=== PATIENT | female | born 1975 | race Hispanic/Latino ===

== ENCOUNTER 2017-06-29 20:56 | Inpatient (IN) | payer OTHER ==
[~2017-06-29] VITALS: Ht 172.7 cm; Wt 133.1 kg
[~2017-06-29 20:56] MED LIST: ADVIL200 MG PO; ENOXAPARIN100 MG/1 M SC; MORPHINE SULFAT15 M1 PO; NORCO 10-325 T1 EACH PO; SUTENT12.5 MG PO; ULTRAM50 MG PO
--- OUTSIDE RECORDS SUMMARY | 2017-06-29 20:58 | XMS REPORT ---
Author [facility] Address Unknown Phone Unavailable Care Team Providers Care Insurance Commissioner Name Role Phone Unavailable Unavailable Problems This patient has no known problems. Allergies, Adverse Reactions, Alerts This patient has no known allergies or adverse reactions. Medications This patient has no known medications. Encounters Start Date/Time End Date/Time Encounter Type Admission Type Attending [facility] Facility Care Department Encounter ID 2017-04-04 16:00:30 Inpatient [facility] [id number] 2017-04-03 11:31:25 Inpatient [facility] [id number] 2017-04-01 15:04:32 Inpatient [facility] [id number] 2017-04-01 12:28:57 Inpatient [facility] [id number] 2017-03-31 00:00:00 Inpatient [facility] [id number] 2017-03-31 00:00:00 Inpatient [facility] [id number] 2017-07-27 00:00:00 2017-07-27 00:00:00 Outpatient [facility] [id number] 2017-07-14 00:00:00 2017-07-14 00:00:00 Outpatient [facility] [id number] 2017-07-14 00:00:00 2017-07-14 00:00:00 Outpatient [facility] [id number] 2017-06-28 04:21:34 2017-06-28 04:21:34 Emergency [facility] [id number] 2017-06-22 08:43:48 2017-06-22 08:43:48 Outpatient [facility] [id number] 2017-06-20 00:00:00 2017-06-20 00:00:00 Outpatient [facility] [id number] 2017-06-16 14:04:39 2017-06-16 14:04:39 Outpatient [facility] [id number] 2017-06-15 10:04:26 2017-06-15 10:04:26 Outpatient [facility] [id number] 2017-06-15 00:00:00 2017-06-15 00:00:00 Outpatient [facility] [id number] 2017-05-26 00:00:00 2017-05-26 00:00:00 Outpatient [facility] [id number] 2017-05-26 00:00:00 2017-05-26 00:00:00 Outpatient [facility] [id number] 2017-05-23 09:15:21 2017-05-23 09:15:21 Outpatient [facility] [id number] 2017-05-19 13:34:13 2017-05-19 13:34:13 Outpatient [facility] [id number] 2017-05-19 12:27:34 2017-05-19 12:27:34 Outpatient [facility] [id number] 2017-05-18 10:17:22 2017-05-18 10:17:22 Outpatient [facility] [id number] 2017-05-18 09:36:12 2017-05-18 09:36:12 Outpatient [facility] [id number] 2017-05-04 00:00:00 2017-05-04 00:00:00 Outpatient [facility] [id number] 2017-05-02 00:00:00 2017-05-02 00:00:00 Outpatient [facility] [id number] 2017-04-28 15:09:55 2017-04-28 15:09:55 Outpatient [facility] [id number] 2017-04-27 09:42:13 2017-04-27 09:42:13 Outpatient [facility] [id number] 2017-04-27 09:03:53 2017-04-27 09:03:53 Outpatient [facility] [id number] 2017-04-26 00:00:00 2017-04-26 00:00:00 Outpatient [facility] [id number] 2017-04-25 10:31:10 2017-04-25 10:31:10 Outpatient [facility] [id number] 2017-04-25 00:00:00 2017-04-25 00:00:00 Outpatient [facility] [id number] 2017-04-20 10:52:49 2017-04-20 10:52:49 Outpatient [facility] [id number] 2017-04-19 00:00:00 2017-04-19 00:00:00 Outpatient [facility] [id number] 2017-04-15 00:00:00 2017-04-15 00:00:00 Outpatient [facility] [id number] 2017-04-14 00:00:00 2017-04-14 00:00:00 Outpatient [facility] [id number] 2017-04-14 00:00:00 2017-04-14 00:00:00 Outpatient [facility] [id number] 2017-04-07 00:00:00 2017-04-07 00:00:00 Outpatient [facility] [id number] 2017-04-07 00:00:00 2017-04-07 00:00:00 Outpatient [facility] [id number] 2017-04-07 00:00:00 2017-04-07 00:00:00 Outpatient [facility] [id number] 2017-04-05 00:00:00 2017-04-05 00:00:00 Outpatient [facility] [id number] 2017-03-31 12:56:12 2017-03-31 12:56:12 Emergency [facility] [id number] 2017-03-31 11:10:17 2017-03-31 11:10:17 Inpatient [facility] [id number] 2017-03-31 08:07:00 2017-03-31 08:07:00 Outpatient [facility] [id number] 2017-03-31 05:21:26 2017-03-31 00:00:00 Inpatient [facility] [id number] 2017-03-31 00:00:00 2017-03-31 00:00:00 Outpatient [facility] [id number] 2017-03-30 00:00:00 2017-03-30 00:00:00 Outpatient [facility] [id number] 2017-03-30 00:00:00 2017-03-30 00:00:00 Emergency [facility] [id number] 2017-03-17 00:00:00 2017-03-17 00:00:00 Outpatient [facility] [id number] 2017-03-14 14:39:17 2017-03-14 14:39:17 Outpatient [facility] [id number] 2017-03-10 13:07:38 2017-03-10 13:07:38 Outpatient [facility] [id number] 2017-03-10 12:35:43 2017-03-10 12:35:43 Outpatient [facility] [id number] 2017-02-24 13:15:48 2017-02-24 13:15:48 Outpatient [facility] [id number] 2017-02-24 12:29:23 2017-02-24 12:29:23 Outpatient [facility] [id number] 2017-02-10 00:00:00 2017-02-10 00:00:00 Outpatient [facility] [id number] 2017-02-01 10:59:52 2017-02-01 10:59:52 Outpatient [facility] [id number] 2017-01-27 13:47:54 2017-01-27 13:47:54 Outpatient [facility] [id number] 2017-01-26 00:00:00 2017-01-26 00:00:00 Outpatient [facility] [id number] 2017-01-20 00:00:00 2017-01-20 00:00:00 Outpatient [facility] [id number] 2017-01-14 12:31:22 2017-01-14 12:31:22 Emergency [facility] [id number] 2017-01-14 11:37:41 2017-01-14 11:37:41 Emergency [facility] [id number] 2017-01-14 08:10:45 2017-01-14 08:10:45 Emergency [facility] [id number] 2017-01-14 05:34:04 2017-01-14 05:34:04 Inpatient [facility] [id number] 2017-01-13 15:34:59 2017-01-13 15:34:59 Outpatient [facility] [id number] 2017-01-13 14:36:27 2017-01-13 14:36:27 Outpatient [facility] [id number] 2017-01-10 19:56:00 2017-01-10 19:56:00 Emergency [facility] [id number] 2016-12-30 00:00:00 2016-12-30 00:00:00 Outpatient [facility] [id number] 2016-12-24 00:00:00 2016-12-24 00:00:00 Outpatient [facility] [id number] 2016-12-23 00:00:00 2016-12-23 00:00:00 Outpatient [facility] [id number] 2016-12-22 00:00:00 2016-12-22 00:00:00 Outpatient [facility] [id number] 2016-12-22 00:00:00 2016-12-22 00:00:00 Outpatient [facility] [id number] 2016-12-16 14:48:53 2016-12-16 14:48:53 Outpatient [facility] [id number] 2016-12-16 00:00:00 2016-12-16 00:00:00 Outpatient [facility] [id number] 2016-12-16 00:00:00 2016-12-16 00:00:00 Outpatient [facility] [id number] 2016-12-13 10:47:22 2016-12-13 10:47:22 Outpatient [facility] [id number] 2016-12-07 13:47:42 2016-12-07 13:47:42 Outpatient [facility] [id number] 2016-12-07 11:39:40 2016-12-07 11:39:40 Outpatient [facility] [id number] 2016-12-06 15:11:27 2016-12-06 15:11:27 Outpatient [facility] [id number] 2016-12-02 00:00:00 2016-12-02 00:00:00 Outpatient [facility] [id number] 2016-12-02 00:00:00 2016-12-02 00:00:00 Outpatient [facility] [id number] 2016-11-22 00:00:00 2016-11-22 00:00:00 Outpatient [facility] [id number] 2016-11-15 00:00:00 2016-11-15 00:00:00 Outpatient [facility] [id number] 2016-11-04 14:51:57 2016-11-04 14:51:57 Outpatient [facility] [id number] 2016-11-04 14:15:19 2016-11-04 14:15:19 Outpatient [facility] [id number] 2016-10-18 08:33:52 2016-10-18 08:33:52 Outpatient [facility] [id number] 2016-10-07 13:32:31 2016-10-07 13:32:31 Outpatient [facility] [id number] 2016-10-07 12:58:11 2016-10-07 12:58:11 Outpatient [facility] [id number] 2016-09-23 00:00:00 2016-09-23 00:00:00 Outpatient [facility] [id number] 2016-09-23 00:00:00 2016-09-23 00:00:00 Outpatient [facility] [id number] 2016-09-21 00:00:00 2016-09-21 00:00:00 Outpatient [facility] [id number] 2016-09-16 00:00:00 2016-09-16 00:00:00 Outpatient [facility] [id number] 2016-09-09 14:28:50 2016-09-09 14:28:50 Outpatient [facility] [id number] 2016-09-09 08:51:19 2016-09-09 08:51:19 Outpatient [facility] [id number] 2016-09-09 00:00:00 2016-09-09 00:00:00 Outpatient [facility] [id number] 2016-09-06 13:51:46 2016-09-06 13:51:46 Outpatient [facility] [id number] 2016-09-03 20:19:04 2016-09-03 20:19:04 Outpatient [facility] [id number] 2016-09-03 15:09:22 2016-09-03 15:09:22 Emergency [facility] [id number] 2016-09-03 13:10:59 2016-09-03 13:10:59 Outpatient [facility] [id number] 2016-09-02 14:47:56 2016-09-02 14:47:56 Outpatient [facility] [id number] 2016-09-02 00:00:00 2016-09-02 00:00:00 Outpatient [facility] [id number] 2016-08-26 11:15:50 2016-08-26 11:15:50 Outpatient [facility] [id number] 2016-08-24 12:42:43 2016-08-24 12:42:43 Outpatient [facility] [id number] 2016-08-24 11:30:37 2016-08-24 11:30:37 Outpatient [facility] [id number] 2016-08-24 11:00:07 2016-08-24 11:00:07 Outpatient [facility] [id number] 2016-08-17 13:04:30 2016-08-17 13:04:30 Outpatient [facility] [id number] 2016-08-09 07:20:16 2016-08-09 07:20:16 Outpatient [facility] [id number]
[2017-06-29] MEDS ORDERED: IBUPROFEN 400 MG TAB PO STA (21:09)
[2017-06-29] MEDS ORDERED: VANCOMYCIN 1GM/NS 250 ML 250 ML IV STA (21:10)
[2017-06-29] MEDS ORDERED: PIPER-TAZ 3.375 GM 50 ML IV STA (21:10)
[2017-06-29] MEDS ORDERED: SODIUM CHLORIDE 0.9% 1000ML 1,000 ML IV ONE ×2 (21:15→22:15)
[2017-06-29 21:49] LABS: BASOPHILS % 0.2 % (0.0-1.0); EOSINOPHILS % 0.4 % (0.0-6.0); HEMATOCRIT 28.9 % (34.2-44.1); LYMPHOCYTES # (AUTO) 1.2 (1.0-3.2); LYMPHOCYTES % 10.8 % (18.0-39.1); MEAN CORPUSCULAR HEMOGLOBIN 21.5 pg (28-32); MEAN CORPUSCULAR HGB CONC 27.7 g/dL (31-35); MEAN CORPUSCULAR VOLUME 77.7 fL (81-99); MONOCYTES # (AUTO) 0.4 (0.2-0.8); MONOCYTES % 3.7 % (4.4-11.3); NEUTROPHILS # (AUTO) 9.5 (2.1-6.9); NEUTROPHILS % 84.5 % (38.7-80.0); PLATELET COUNT 370 x10e3/uL (140-360); RED BLOOD COUNT 3.72 x10e6/uL (3.6-5.1); RED CELL DISTRIBUTION WIDTH 23.1 % (11.7-14.4)
[2017-06-29 21:52] LABS: BILIRUBIN,URINE NEGATIVE (NEGATIVE); CLARITY,URINE SL CLOUDY (CLEAR); COLOR,URINE YELLOW (YELLOW); KETONES,URINE NEGATIVE (NEGATIVE); LEUKOCYTE ESTERASE ,URINE NEGATIVE (NEGATIVE); NITRITE,URINE NEGATIVE (NEGATIVE); PROTEIN,URINE DIPSTICK TRACE (NEGATIVE); URINE UROBILINOGEN 1 mg/dL (0.2 - 1)
[2017-06-29 22:03] LABS: BACTERIA,URINE MODERATE /HPF; EPITHELIAL CELLS,URINE MANY /LPF
[2017-06-29 22:04] LABS: ALANINE AMINOTRANSFERASE 16 IU/L (0-55); ALBUMIN 2.9 g/dL (3.5-5.0); ALBUMIN/GLOBULIN RATIO 0.6 (0.8-2.0); ALKALINE PHOSPHATASE 92 IU/L (40-150); ANION GAP 15.8 mmol/L (8-16); BLOOD UREA NITROGEN 14 mg/dL (7-26); BUN/CREATININE RATIO 18 (6-25); CALCIUM 9.1 mg/dL (8.4-10.2); CARBON DIOXIDE 24 mmol/L (22-29); CHLORIDE 100 mmol/L (98-107); CREATININE, SERUM 0.76 mg/dL (0.57-1.11); EST GLOMERULAR FILTRATION RATE > 60 ML/MIN (60-); GLUCOSE 153 mg/dL (74-118); POTASSIUM 3.8 mmol/L (3.5-5.1); SODIUM 136 mmol/L (136-145)
[2017-06-29] MEDS ORDERED: SERTRALINE HCL100 MG PO (22:47)
[2017-06-29] MEDS ORDERED: SUTENT12.5 MG PO (22:47)
[2017-06-29] MEDS ORDERED: ACETAMINOPHEN 1000 MG/100 ML IV STA (22:51)
--- NOTE | 2017-06-29 22:53 | Diagnostic Imaging Report ---
EXAMINATION: CHEST SINGLE (NOT PORTABLE) INDICATION: Septic. COMPARISON: None FINDINGS: TUBES and LINES: Right-sided chest port with tip overlying the atriocaval junction LUNGS: Lungs are not well inflated. Lungs are clear. There is no evidence of pneumonia or pulmonary edema. PLEURA: No pleural effusion or pneumothorax. HEART AND MEDIASTINUM: The cardiomediastinal silhouette is unremarkable. BONES AND SOFT TISSUES: No acute osseous lesion. Soft tissues are unremarkable. UPPER ABDOMEN: No free air under the diaphragm. IMPRESSION: No acute thoracic abnormality. Signed by: Dr. Shay Lopez M.D. on 06/29/2017 10:49 PM
--- NOTE | 2017-06-29 22:54 | Diagnostic Imaging Report ---
FEMUR 2 VIEWS MINIMUM LEFT HISTORY: Infection COMPARISON: None FINDINGS: Bones: No displaced fracture. Osseous alignment is within normal limits. Joints: The joint spaces are well-maintained. Soft tissues: Large soft tissue defect noted at the level of the lateral posterior left knee IMPRESSION: 1. No acute osseous abnormality. 2. Large soft tissue defect as described above Signed by: Dr. Shay Lopez M.D. on 06/29/2017 10:51 PM
--- NOTE | 2017-06-29 22:54 | Diagnostic Imaging Report ---
LOWER LEG LEFT HISTORY: Infection COMPARISON: None FINDINGS: Bones: No displaced fracture. Osseous alignment is within normal limits. Joints: The joint spaces are well-maintained. Soft tissues: Large soft tissue defect noted at the level of the lateral left knee IMPRESSION: 1. No acute osseous abnormality. 2. Large soft tissue defect as described above Signed by: Dr. Shay Lopez M.D. on 06/29/2017 10:50 PM
--- NOTE | 2017-06-29 22:55 | Diagnostic Imaging Report ---
PELVIS AP 1-2 VIEWS HISTORY: Pain COMPARISON: None FINDINGS: Bones: No displaced fracture. Osseous alignment is within normal limits. Joints: The joint spaces are well-maintained. Soft tissues: The soft tissues appear unremarkable. IMPRESSION: No acute radiographic abnormality. Signed by: Dr. Shay Lopez M.D. on 06/29/2017 10:51 PM
[2017-06-29 23:33] LABS: INR 1.13; PROTHROMBIN TIME 13.6 seconds (11.9-14.5)
[2017-06-29 23:34] LABS: PARTIAL THROMBOPLASTIN TIME 34.8 seconds (23.8-35.5)
[2017-06-30] VITALS (59 sets, daily range): BP systolic 103–156; BP diastolic 61–97
[2017-06-30] MEDS ORDERED: ACETAMINOPHEN 1000 MG/100 ML IV PRN (01:15)
[2017-06-30] MEDS ORDERED: MORPHINE SULFATE 2 MG/ML SYR IV PRN (01:15)
[2017-06-30] MEDS ORDERED: ONDANSETRON HCL INJ 2 MG/ML VIAL IV PRN (01:15)
[2017-06-30] MEDS: SODIUM CHLORIDE 0.9% 1000ML 1,000 ML IV SCH ×3 (01:42→21:15)
[2017-06-30] MEDS: PIPER-TAZ 3.375 GM 50 ML IV SCH ×4 (04:19→21:00)
[2017-06-30 04:51] LABS: CREATINE KINASE 57 IU/L (29-168)
[2017-06-30 06:03] LABS: BASOPHILS % 0.3 % (0.0-1.0); EOSINOPHILS % 0.3 % (0.0-6.0); HEMATOCRIT 25.7 % (34.2-44.1); LYMPHOCYTES # (AUTO) 0.6 (1.0-3.2); LYMPHOCYTES % 7.3 % (18.0-39.1); MEAN CORPUSCULAR HEMOGLOBIN 21.8 pg (28-32); MEAN CORPUSCULAR HGB CONC 27.6 g/dL (31-35); MEAN CORPUSCULAR VOLUME 78.8 fL (81-99); MONOCYTES # (AUTO) 0.3 (0.2-0.8); MONOCYTES % 3.5 % (4.4-11.3); NEUTROPHILS # (AUTO) 6.9 (2.1-6.9); NEUTROPHILS % 88.2 % (38.7-80.0); PLATELET COUNT 296 x10e3/uL (140-360); RED BLOOD COUNT 3.26 x10e6/uL (3.6-5.1); RED CELL DISTRIBUTION WIDTH 22.7 % (11.7-14.4)
[2017-06-30 06:09] LABS: HEMOGLOBIN 7.1 g/dL (12.0-16.0)
[2017-06-30 06:38] LABS: ALANINE AMINOTRANSFERASE 15 IU/L (0-55); ALBUMIN 2.4 g/dL (3.5-5.0); ALBUMIN/GLOBULIN RATIO 0.6 (0.8-2.0); ALKALINE PHOSPHATASE 76 IU/L (40-150); ANION GAP 10.5 mmol/L (8-16); BLOOD UREA NITROGEN 12 mg/dL (7-26); BUN/CREATININE RATIO 17 (6-25); CALCIUM 8.4 mg/dL (8.4-10.2); CARBON DIOXIDE 26 mmol/L (22-29); CHLORIDE 105 mmol/L (98-107); EST GLOMERULAR FILTRATION RATE > 60 ML/MIN (60-); GLUCOSE 119 mg/dL (74-118); POTASSIUM 3.5 mmol/L (3.5-5.1); SODIUM 138 mmol/L (136-145)
[2017-06-30 07:11] LABS: CREATINE KINASE MB 2.9 ng/mL (0-5.0)
[2017-06-30] MEDS ORDERED: SODIUM CHLORIDE 0.9% 250ML 250 ML IV ONE (08:00)
[2017-06-30] MEDS ORDERED: LIDOCAINE HCL 2% JELLY 5 ML TUBE TOP ONE (09:00)
[2017-06-30 09:50] LABS: ANISOCYTOSIS MODE; PLATELET ESTIMATE ADEQUATE; PLATELET MORPHOLOGY COMMENT NORMAL; POIKILOCYTOSIS SLIGHT
[2017-06-30 09:51] LABS: HYPOCHROMASIA MODE; RBC MORPHOLOGY COMMENT ABNORMAL
[2017-06-30] MEDS: VANCOMYCIN 1GM/NS 250 ML 250 ML IV SCH ×2 (11:07→23:20)
--- NOTE | 2017-06-30 12:56 | Diagnostic Imaging Report ---
PROCEDURE: A single AP view of the chest. COMPARISON: Chest radiograph 06/29/2017 at 2239 INDICATIONS: PICC LINE PLACEMENT FINDINGS: See impression. Stable enlargement of the cardiac silhouette. Lungs, pleura, cardiomediastinal silhouette, bones, and soft tissues are unchanged. IMPRESSION: 1. Left upper extremity PICC tip overlies the cavoatrial junction. 2. Stable right sided chest port with tip overlying the cavoatrial junction. 3. No acute cardiopulmonary disease. Dictated by: Norris Gatica M.D. on 06/30/2017 at 12:56 Electronically approved by: Norris Gatica M.D. on 06/30/2017 at 12:56
[2017-06-30 18:18] LABS: CREATINE KINASE MB 2.1 ng/mL (0-5.0)
[2017-06-30] MEDS: SERTRALINE HCL 100 MG TAB PO SCH (21:00)
[2017-07-01] VITALS (33 sets, daily range): BP systolic 109–142; BP diastolic 67–111
[2017-07-01] MEDS: PIPER-TAZ 3.375 GM 50 ML IV SCH ×3 (03:45→20:51)
--- NOTE | 2017-07-01 05:01 | Consultation ---
DATE OF CONSULTATION: July 01, 2017 REASON FOR CONSULTATION: Surgical wound infection on the left leg. HISTORY OF PRESENT ILLNESS: This patient who is a 41-year-old female. 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 She was [place], underwent surgical resection apparently. Since then, she had open wound and she was told she was cured. She is followed here at [facility]. Now, she has a new lesion in her thigh and she has an open wound on her leg, and she is on oral chemotherapy. Apparently, she was just in the emergency room at [facility] few days ago for her open wound and she was just discharged home with some oral antibiotics. She went home and then she started to have fever and chills according to her, so the patient came to our emergency room where she was admitted. When I saw the patient, she was in the hospital in the emergency room, admitted to ICU. She looked very comfortable, had no complaints. PAST MEDICAL HISTORY: Left leg sarcoma status post resection in 2007 and 2012, chronic leg edema, history of UTI before. PAST SURGICAL HISTORY: Cholecystectomy, left leg sarcoma surgery in 2007 and 2012 with open wound now. ALLERGIES: NKA. FAMILY HISTORY: There is no smoking, drug abuse, alcohol abuse. FAMILY HISTORY: Hypertension. REVIEW OF SYSTEMS: When I saw her, she looked very comfortable. There are no new complaints. HEENT: Negative. PULMONARY: Negative. CARDIAC: Negative. : Negative. LABORATORY DATA: Reviewed. Her blood cultures negative for 24 hours. Her urine culture is still pending. Her white count on admission was 11.24, today is 7.76; hemoglobin is 7.1; platelet of 296,000. Sodium 138, potassium 3.5, creatinine 0.7. MEDICATION LIST: Reviewed. PHYSICAL EXAMINATION: GENERAL: She is alert, oriented, does not seem to be in acute distress. VITAL SIGNS: Stable. T-max had been 103.6 on admission, coming down to 100.2. HEENT: Normocephalic. Does not appear icteric. NECK: Supple. CHEST: Clear. HEART: S1 and S2. No S3, S4, or murmur. ABDOMEN: Soft. Bowel sounds present. No tenderness. EXTREMITIES: There is edema, there is erythema, there is an open wound on the leg, there is induration. There is necrotic tissue noted on the muscles, on the fiber sheath. No pus or drainage at present time. IMPRESSION: Fever in a patient who has sarcoma with recurrence now, with open wound on her leg. Agree with vancomycin and Zosyn. Continue therapy. Await blood cultures. Continue with local wound care. I will follow with you. Discussed with Dr. Jamal Vázquez. Discussed with the family. Thank you. Job#: [id number]
[2017-07-01] MEDS: SODIUM CHLORIDE 0.9% 1000ML 1,000 ML IV SCH ×3 (05:26→20:51)
[2017-07-01 06:16] LABS: CHOL/HDL RATIO 3.9 (3.0-3.6)
[2017-07-01 07:43] LABS: BASOPHILS % 0.2 % (0.0-1.0); EOSINOPHILS # (AUTO) 0.1 (0.0-0.4); EOSINOPHILS % 2.2 % (0.0-6.0); HEMATOCRIT 28.6 % (34.2-44.1); HEMOGLOBIN 8.3 g/dL (12.0-16.0); LYMPHOCYTES # (AUTO) 1.3 (1.0-3.2); LYMPHOCYTES % 21.3 % (18.0-39.1); MEAN CORPUSCULAR HEMOGLOBIN 23.2 pg (28-32); MEAN CORPUSCULAR VOLUME 79.9 fL (81-99); MONOCYTES # (AUTO) 0.3 (0.2-0.8); MONOCYTES % 4.9 % (4.4-11.3); NEUTROPHILS # (AUTO) 4.2 (2.1-6.9); NEUTROPHILS % 71.1 % (38.7-80.0); PLATELET COUNT 282 x10e3/uL (140-360); RED BLOOD COUNT 3.58 x10e6/uL (3.6-5.1); RED CELL DISTRIBUTION WIDTH 21.2 % (11.7-14.4)
[2017-07-01 07:54] LABS: ANION GAP 9.4 mmol/L (8-16); BLOOD UREA NITROGEN 10 mg/dL (7-26); BUN/CREATININE RATIO 17 (6-25); CALCIUM 8.2 mg/dL (8.4-10.2); CARBON DIOXIDE 26 mmol/L (22-29); CHLORIDE 105 mmol/L (98-107); EST GLOMERULAR FILTRATION RATE > 60 ML/MIN (60-); GLUCOSE 105 mg/dL (74-118); POTASSIUM 3.4 mmol/L (3.5-5.1); SODIUM 137 mmol/L (136-145)
[2017-07-01] MEDS ORDERED: SUTENT PO SCH (09:00)
[2017-07-01] MEDS: VANCOMYCIN 1GM/NS 250 ML 250 ML IV SCH ×2 (10:00→22:00)
[2017-07-01] MEDS: SERTRALINE HCL 100 MG TAB PO SCH (20:51)
[2017-07-01] MEDS ORDERED: VANCOMYCIN 1GM/NS 250 ML 250 ML ONE (21:46)
[2017-07-02] VITALS (8 sets, daily range): BP systolic 139–158; BP diastolic 74–99
[2017-07-02] MEDS: SODIUM CHLORIDE 0.9% 1000ML 1,000 ML IV SCH ×2 (03:17→13:17)
[2017-07-02] MEDS: PIPER-TAZ 3.375 GM 50 ML IV SCH ×4 (03:24→23:00)
[2017-07-02] MEDS: SUTENT PO SCH (08:49)
[2017-07-02] MEDS ORDERED: VANCOMYCIN 1GM/NS 250 ML 250 ML IV SCH (10:00)
[2017-07-02] MEDS: VANCOMYCIN HCL 1.5 GM in SODIUM CHLORIDE 0.9% 250ML 300 ML IV SCH ×2 (10:34→20:30)
[2017-07-02] MEDS ORDERED: LACTATED RINGER'S 1,000 ML ONE (14:38)
[2017-07-02] MEDS: SERTRALINE HCL 100 MG TAB PO SCH (20:30)
[2017-07-02] MEDS ORDERED: VANCOMYCIN HCL 1.5 GM in SODIUM CHLORIDE 0.9% 250ML 300 ML IV SCH (21:00)
[2017-07-03] VITALS (8 sets, daily range): BP systolic 114–154; BP diastolic 75–92
[2017-07-03] MEDS: PIPER-TAZ 3.375 GM 50 ML IV SCH ×4 (03:41→21:15)
[2017-07-03 07:47] LABS: BASOPHILS % 0.5 % (0.0-1.0); EOSINOPHILS # (AUTO) 0.2 (0.0-0.4); EOSINOPHILS % 5.4 % (0.0-6.0); HEMATOCRIT 30.9 % (34.2-44.1); HEMOGLOBIN 8.8 g/dL (12.0-16.0); LYMPHOCYTES # (AUTO) 1.5 (1.0-3.2); LYMPHOCYTES % 35.9 % (18.0-39.1); MEAN CORPUSCULAR HEMOGLOBIN 22.7 pg (28-32); MEAN CORPUSCULAR HGB CONC 28.5 g/dL (31-35); MEAN CORPUSCULAR VOLUME 79.6 fL (81-99); MONOCYTES # (AUTO) 0.2 (0.2-0.8); MONOCYTES % 4.5 % (4.4-11.3); NEUTROPHILS # (AUTO) 2.2 (2.1-6.9); NEUTROPHILS % 53.5 % (38.7-80.0); PLATELET COUNT 295 x10e3/uL (140-360); RED BLOOD COUNT 3.88 x10e6/uL (3.6-5.1); RED CELL DISTRIBUTION WIDTH 21.4 % (11.7-14.4)
[2017-07-03 08:36] LABS: ALANINE AMINOTRANSFERASE 18 IU/L (0-55); ALBUMIN 2.2 g/dL (3.5-5.0); ALBUMIN/GLOBULIN RATIO 0.6 (0.8-2.0); ALKALINE PHOSPHATASE 70 IU/L (40-150); ANION GAP 9.4 mmol/L (8-16); BLOOD UREA NITROGEN 8 mg/dL (7-26); BUN/CREATININE RATIO 14 (6-25); CALCIUM 8.5 mg/dL (8.4-10.2); CARBON DIOXIDE 30 mmol/L (22-29); CHLORIDE 101 mmol/L (98-107); CREATININE, SERUM 0.59 mg/dL (0.57-1.11); EST GLOMERULAR FILTRATION RATE > 60 ML/MIN (60-); GLUCOSE 98 mg/dL (74-118); POTASSIUM 3.4 mmol/L (3.5-5.1); SODIUM 137 mmol/L (136-145)
[2017-07-03] MEDS: SUTENT PO SCH (09:00)
[2017-07-03] MEDS: VANCOMYCIN HCL 1.5 GM in SODIUM CHLORIDE 0.9% 250ML 300 ML IV SCH ×2 (09:50→21:55)
[2017-07-03] MEDS ORDERED: POTASSIUM CHLORIDE 10 MEQ TABCR PO ONE (13:15)
[2017-07-03] MEDS ORDERED: POTASSIUM CHLORIDE 20 MEQ TAB CR PO ONE (13:30)
[2017-07-03] MEDS: SERTRALINE HCL 100 MG TAB PO SCH (21:15)
[2017-07-04] VITALS (8 sets, daily range): BP systolic 122–152; BP diastolic 71–83
[2017-07-04] MEDS: PIPER-TAZ 3.375 GM 50 ML IV SCH ×4 (03:40→21:35)
[2017-07-04] MEDS ORDERED: ALTEPLASE RECOMBINANT 2 MG/2 ML VIAL IV ONE ×3 (05:00)
[2017-07-04 06:31] LABS: BASOPHILS % 0.4 % (0.0-1.0); EOSINOPHILS # (AUTO) 0.3 (0.0-0.4); EOSINOPHILS % 5.5 % (0.0-6.0); HEMOGLOBIN 8.9 g/dL (12.0-16.0); LYMPHOCYTES # (AUTO) 1.5 (1.0-3.2); LYMPHOCYTES % 32.5 % (18.0-39.1); MEAN CORPUSCULAR HEMOGLOBIN 22.8 pg (28-32); MEAN CORPUSCULAR HGB CONC 28.7 g/dL (31-35); MEAN CORPUSCULAR VOLUME 79.3 fL (81-99); MONOCYTES # (AUTO) 0.3 (0.2-0.8); MONOCYTES % 5.9 % (4.4-11.3); NEUTROPHILS # (AUTO) 2.5 (2.1-6.9); NEUTROPHILS % 55.3 % (38.7-80.0); PLATELET COUNT 274 x10e3/uL (140-360); RED BLOOD COUNT 3.91 x10e6/uL (3.6-5.1); RED CELL DISTRIBUTION WIDTH 21.4 % (11.7-14.4)
[2017-07-04 06:50] LABS: ANION GAP 8.6 mmol/L (8-16); BLOOD UREA NITROGEN 7 mg/dL (7-26); BUN/CREATININE RATIO 12 (6-25); CALCIUM 8.5 mg/dL (8.4-10.2); CARBON DIOXIDE 30 mmol/L (22-29); CHLORIDE 102 mmol/L (98-107); CREATININE, SERUM 0.58 mg/dL (0.57-1.11); EST GLOMERULAR FILTRATION RATE > 60 ML/MIN (60-); GLUCOSE 99 mg/dL (74-118); POTASSIUM 3.6 mmol/L (3.5-5.1); SODIUM 137 mmol/L (136-145)
[2017-07-04] MEDS: SUTENT PO SCH (08:09)
[2017-07-04] MEDS: VANCOMYCIN HCL 1.5 GM in SODIUM CHLORIDE 0.9% 250ML 300 ML IV SCH ×2 (08:09→21:50)
[2017-07-04 08:40] LABS: ANISOCYTOSIS SLIGHT; ELLIPTOCYTE, RBC SLIGHT; HYPOCHROMASIA MODERATE; PLATELET ESTIMATE ADEQUATE; PLATELET MORPHOLOGY COMMENT NORMAL; RBC MORPHOLOGY COMMENT NORMAL
[2017-07-04] MEDS: MORPHINE SULFATE 2 MG/ML SYR IV PRN ×2 (14:00→18:05)
[2017-07-04] MEDS: ONDANSETRON HCL INJ 2 MG/ML VIAL IV PRN ×2 (14:00→18:05)
[2017-07-04] MEDS: SERTRALINE HCL 100 MG TAB PO SCH (21:40)
[2017-07-05] VITALS (7 sets, daily range): BP systolic 125–158; BP diastolic 60–89
[2017-07-05] MEDS: PIPER-TAZ 3.375 GM 50 ML IV SCH ×4 (03:02→20:30)
[2017-07-05] MEDS: SUTENT PO SCH (09:00)
[2017-07-05] MEDS: ONDANSETRON HCL INJ 2 MG/ML VIAL IV PRN (09:55)
[2017-07-05] MEDS: MORPHINE SULFATE 2 MG/ML SYR IV PRN (09:55)
[2017-07-05] MEDS: VANCOMYCIN HCL 1.5 GM in SODIUM CHLORIDE 0.9% 250ML 300 ML IV SCH ×2 (11:12→21:50)
[2017-07-05] MEDS: SERTRALINE HCL 100 MG TAB PO SCH (20:30)
[2017-07-06] VITALS (8 sets, daily range): BP systolic 110–136; BP diastolic 63–98
[2017-07-06] MEDS: PIPER-TAZ 3.375 GM 50 ML IV SCH ×4 (03:38→21:00)
[2017-07-06] MEDS: SUTENT PO SCH (08:54)
[2017-07-06] MEDS: VANCOMYCIN HCL 1.5 GM in SODIUM CHLORIDE 0.9% 250ML 300 ML IV SCH ×2 (09:45→21:00)
[2017-07-06] MEDS: MORPHINE SULFATE 2 MG/ML SYR IV PRN (16:55)
[2017-07-06] MEDS: SERTRALINE HCL 100 MG TAB PO SCH (21:00)
[2017-07-07] VITALS: BP_SYST 131; BP_DIAS 76; BP_DIAS 79
[2017-07-07] MEDS: PIPER-TAZ 3.375 GM 50 ML IV SCH ×3 (03:00→14:33)
[2017-07-07 04:00] VITALS: BP 133/73
[2017-07-07 07:30] VITALS: BP 127/82
[2017-07-07 07:50] VITALS: BP 127/82
[2017-07-07 08:45] LABS: BASOPHILS % 0.4 % (0.0-1.0); EOSINOPHILS # (AUTO) 0.2 (0.0-0.4); EOSINOPHILS % 4.8 % (0.0-6.0); HEMATOCRIT 31.2 % (34.2-44.1); HEMOGLOBIN 8.9 g/dL (12.0-16.0); LYMPHOCYTES # (AUTO) 1.7 (1.0-3.2); LYMPHOCYTES % 34.7 % (18.0-39.1); MEAN CORPUSCULAR HEMOGLOBIN 22.9 pg (28-32); MEAN CORPUSCULAR HGB CONC 28.5 g/dL (31-35); MEAN CORPUSCULAR VOLUME 80.4 fL (81-99); MONOCYTES # (AUTO) 0.3 (0.2-0.8); NEUTROPHILS # (AUTO) 2.7 (2.1-6.9); NEUTROPHILS % 54.7 % (38.7-80.0); PLATELET COUNT 291 x10e3/uL (140-360); RED BLOOD COUNT 3.88 x10e6/uL (3.6-5.1); RED CELL DISTRIBUTION WIDTH 22.4 % (11.7-14.4)
[2017-07-07] MEDS: SUTENT PO SCH (09:00)
[2017-07-07 09:03] LABS: BLOOD UREA NITROGEN 9 mg/dL (7-26); BUN/CREATININE RATIO 15 (6-25); CALCIUM 8.9 mg/dL (8.4-10.2); CARBON DIOXIDE 29 mmol/L (22-29); CHLORIDE 102 mmol/L (98-107); CREATININE, SERUM 0.62 mg/dL (0.57-1.11); EST GLOMERULAR FILTRATION RATE > 60 ML/MIN (60-); GLUCOSE 112 mg/dL (74-118); SODIUM 138 mmol/L (136-145)
[2017-07-07] MEDS: VANCOMYCIN HCL 1.5 GM in SODIUM CHLORIDE 0.9% 250ML 300 ML IV SCH (09:46)
[2017-07-07] MEDS ORDERED: ALTEPLASE RECOMBINANT 2 MG/2 ML VIAL IV PRN (11:00)
[2017-07-07 11:50] VITALS: BP 121/74
[2017-07-07 13:57] LABS: PLATELET ESTIMATE ADEQUATE; PLATELET MORPHOLOGY COMMENT FEW LARGE
[2017-07-07 13:58] LABS: ANISOCYTOSIS SLIGHT; HYPOCHROMASIA SLIGHT; MICROCYTOSIS SLIG; RBC MORPHOLOGY COMMENT NORMAL
[2017-07-07 16:07] VITALS: BP 135/88
== END 2017-07-07 18:15 | disposition home or self-care (01) | DRG 871 ==
LOC: ER 20:56 → ERHOLD 06-30 01:25 → ICU 06-30 01:33 → ERHOLD 06-30 01:34 → ICU 06-30 01:46 → MED/SURG3 07-01 20:25 → UNDODISIN 07-01 21:00
PROC: B5181ZA Fluoroscopy of Superior Vena Cava using Low Osmolar Contrast, Guidance (ICD-10-PCS; principal; 2017-06-30)
PROC: 02HV33Z Insertion of Infusion Device into Superior Vena Cava, Percutaneous Approach (ICD-10-PCS; principal; 2017-06-30)
PROC: 30243N1 Transfusion of Nonautologous Red Blood Cells into Central Vein, Percutaneous Approach (ICD-10-PCS; principal; 2017-06-30)
DX: A41.89 Other specified sepsis (principal); R65.21 Severe sepsis with septic shock; Z68.41 Body mass index [BMI] 40.0-44.9, adult; E66.01 Morbid (severe) obesity due to excess calories; C49.9 Malignant neoplasm of connective and soft tissue, unspecified; L03.116 Cellulitis of left lower limb; D63.8 Anemia in other chronic diseases classified elsewhere; R53.81 Other malaise; T81.4XXS Infection following a procedure, sequela; I89.0 Lymphedema, not elsewhere classified
CPT/HCPCS: 36415; 36569; 71045; 72170; 80048; 80053; 80061; 80202; 81001; 82550; 82553; 83605; 84484; 85025; 85610; 85730; 86850; 86900; 86920; 87040; 87071; 87086; 87186; 87205; 93005; 96360; 99285; J2001; J2270; J2405; J2543; J2997; J3370; J7030; J7050; J7120; P9016

== ENCOUNTER 2017-08-05 01:12 | Emergency (ER) | payer OTHER ==
[~2017-08-05] VITALS: Ht 172.7 cm; Wt 132.9 kg
[~2017-08-05 01:12] MED LIST changes: +SERTRALINE HCL100 MG PO
--- OUTSIDE RECORDS SUMMARY | 2017-08-05 01:14 | XMS REPORT | Continuity of Care Document ---
Author Author [facility] Organization [facility] Address [address] [place] [address] Phone Unavailable Care Team Providers Care Accounts Supervisor Name Role Phone NONSTAFF PCP Unavailable Insurance Providers Guarantor Cheryl Smith Address [address] [place] [address] Email NONE Payer [facility] [employer] Policy Number [id number] Subscriber's Name Cheryl Smith Relationship 18 Self / Same As Patient Group Number [id number] Group Name UNEMPLOYED Effective Date 15 Advance Directives Directive Response Recorded Date/Time Does the patient have an advance directive? No 06/30/17 3:47am If yes, is advance directive on file with [facility]? No 06/30/17 3:47am If not on file with [facility] will patient provide a copy? No 06/30/17 3:47am Do you have a Directive to Physician? No 06/29/17 8:55pm Do you have a Medical Power of Friend Of The Court? No 06/29/17 8:55pm Do you have an out of hospital Do Not Resuscitate Order? No 06/29/17 8:55pm Do you have any special needs we should be aware of? No 06/29/17 8:55pm Do you have a support person here with you today? Yes 06/29/17 8:55pm Did patient receive Notice of Privacy Practices? Yes 06/29/17 8:55pm Did patient receive patient rights and responsibilities? Yes 06/29/17 8:55pm Problems Medical Problem Onset Date Status Cellulitis Unknown Chronic wound of extremity Unknown Pyelonephritis Unknown Sarcoma Unknown Sepsis Unknown Medications Current Home Medications Medication Dose Units Route Directions Days Qty Instructions Start Date Sertraline Hcl 100 Mg Tablet 100 Mg Oral Bedtime Sunitinib Malate (Sutent) 12.5 Mg Capsule 37.5 Mg Oral Past Home Medications Medication Directions Ordered Status Enoxaparin Sodium 100 Mg/1 Ml Disp.syrin, 150 Mg Subcutaneously Daily Discontinued Hydrocodone Bit/Acetaminophen (Powell 10-325 Tablet) 1 Each Tablet, 1 Tab Oral Every 6 Hours as needed for Pain Discontinued Ibuprofen (Advil) 200 Mg Tablet, 600 Mg Oral Every 6 Hours as needed for Pain Discontinued Morphine Sulfate (Morphine Sulfate Er) 15 Mg Tablet.er, 15 Mg Oral Twice A Day as needed for Pain Discontinued Sunitinib Malate (Sutent) 12.5 Mg Capsule, 37.5 Mg Oral Daily Discontinued Tramadol Hcl (Ultram) 50 Mg Tablet, 50 Mg Oral Every 6 Hours as needed for Pain Discontinued Social History Social History Problem Response Recorded Date/Time Onset Date Status Hx Psychiatric Problems No 06/30/2017 3:47am Not Applicable Not Applicable Hx Eating Disorder No 06/30/2017 3:47am Not Applicable Not Applicable Hx Substance Use Disorder No 06/30/2017 3:47am Not Applicable Not Applicable Hx Depression No 06/30/2017 3:47am Not Applicable Not Applicable Hx Alcohol Use Y - OCCASIONAL 06/30/2017 3:47am Not Applicable Not Applicable Hx Substance Use Treatment No 06/30/2017 3:47am Not Applicable Not Applicable Hx Physical Abuse No 06/30/2017 3:47am Not Applicable Not Applicable Smoking Status Start Date Stop Date Never Smoker Hospital Discharge Instructions No hospital discharge instruction information available. Plan of Care Discharge Date 07/07/17 6:15pm Disposition HOME, SELF-CARE Instructions/Education Provided Cancer Pain Wound Care (General) Prescriptions See Medication Section Additional Instructions/Education FOLLOW UP WITH PHYSICIAN INSTRUCTED. Functional Status Query Response Date Recorded Assistive Devices Straight Cane June 30, 2017 4:01am Ambulation Ability Moderate Assistance June 30, 2017 4:01am Toileting Ability Minimum Assistance July 07, 2017 5:50pm Allergies, Adverse Reactions, Alerts No known allergies. Immunizations No immunization information available. Vital Signs Acute Vital Signs Vital Response Date/Time Temperature (Fahrenheit) 96.5 degrees F (97.6 - 99.5) 07/07/2017 4:07pm Pulse Pulse Rate (adult) 76 bpm (60 - 90) 07/07/2017 4:07pm Respiratory Rate 18 bpm (12 - 24) 07/07/2017 4:07pm Blood Pressure 135/88 mm Hg 07/07/2017 4:07pm Height 5 ft 8 in 06/29/2017 9:06pm Weight 293.38 lb 07/05/2017 1:41am Body Mass Index 44.6 kg/m^2 07/05/2017 1:41am Results Laboratory Results Test Name Result Units Flags Reference Collection Date/Time Result Date/ Time Comments White Blood Count 4.99 x10e3/uL 4.8-10.8 07/07/2017 8:30am 07/07/2017 8 :46am Red Blood Count 3.88 x10e6/uL 3.6-5.1 07/07/2017 8:30am 07/07/2017 8: 46am Hemoglobin 8.9 g/dL L 12.0-16.0 07/07/2017 8:30am 07/07/2017 8:46am Hematocrit 31.2 % L 34.2-44.1 07/07/2017 8:30am 07/07/2017 8:46am Mean Corpuscular Volume 80.4 fL L 81-99 07/07/2017 8:30am 07/07/2017 8: 46am Mean Corpuscular Hemoglobin 22.9 pg L 28-32 07/07/2017 8:30am 2017 8:46am Mean Corpuscular Hemoglobin Concent 28.5 g/dL L 31-35 07/07/2017 8:30am 07/07/2017 8:46am Red Cell Distribution Width 22.4 % H 11.7-14.4 07/07/2017 8:30am 2017 8:46am Platelet Count 291 x10e3/uL 140-360 07/07/2017 8:30am 07/07/2017 8: 46am Neutrophils (%) (Auto) 54.7 % 38.7-80.0 07/07/2017 8:07/07/2017 8: 46am Lymphocytes (%) (Auto) 34.7 % 18.0-39.1 07/07/2017 8:07/07/2017 8: 46am Monocytes (%) (Auto) 5.0 % 4.4-11.3 07/07/2017 8:07/07/2017 8: 46am Eosinophils (%) (Auto) 4.8 % 0.0-6.0 07/07/2017 8:3007/07/2017 8: 46am Basophils (%) (Auto) 0.4 % 0.0-1.0 07/07/2017 8:07/07/2017 8:46am IM GRANULOCYTES % 0.4 % 0.0-1.0 07/07/2017 8:07/07/2017 8:46am Neutrophils # (Auto) 2.7 2.1-6.9 07/07/2017 8:07/07/2017 8:46am Lymphocytes # (Auto) 1.7 1.0-3.2 07/07/2017 8:07/07/2017 8:46am Monocytes # (Auto) 0.3 0.2-0.8 07/07/2017 8:07/07/2017 8:46am Eosinophils # (Auto) 0.2 0.0-0.4 07/07/2017 8:07/07/2017 8:46am Basophils # (Auto) 0.0 0.0-0.1 07/07/2017 8:07/07/2017 8:46am Absolute Immature Granulocyte (auto 0.02 x10e3/uL 0-0.1 07/07/2017 8: 07/07/2017 8:46am Platelet Estimate ADEQUATE 07/07/2017 8:07/07/2017 1:58pm Platelet Morphology Comment FEW LARGE 07/07/2017 8:07/07/2017 1:58pm Hypochromasia SLIGHT 07/07/2017 8:am 07/07/2017 1:58pm Poikilocytosis SLIGHT 06/30/2017 5:3006/30/2017 9:51am Anisocytosis SLIGHT 07/07/2017 8:30am 07/07/2017 1:58pm Microcytosis SLIG 07/07/2017 8:30am 07/07/2017 1:58pm Elliptocytes SLIGHT 07/04/2017 6:08am 07/04/2017 8:40am Red Cell Morphology Comment NORMAL 07/07/2017 8:30am 07/07/2017 1: 58pm Prothrombin Time 13.6 seconds 11.9-14.5 06/29/2017 9:30pm 06/29/2017 11 :35pm Prothromb Time International Ratio 1.13 06/29/2017 9:30pm 2017 11:35pm Oral Anticoagulant Therapy INR Values: 1. Low Intensity Therapy 1.5 - 2.0 2. Moderate Intensity Therapy 2.0 - 3.0 3. High Intensity Therapy(1) 2.5 - 3.5 4. High Intensity Therapy(2) 3.0 - 4.0 5. Panic Value INR > 5.0 Activated Partial Thromboplast Time 34.8 seconds 23.8-35.5 06/29/2017 9: 30pm 06/29/2017 11:35pm Urine Color YELLOW YELLOW 06/29/2017 9:30pm 06/29/2017 9:53pm Urine Clarity SL CLOUDY CLEAR 06/29/2017 9:30pm 06/29/2017 9:53pm Urine Specific [place] 1.020 1.010-1.025 06/29/2017 9:30pm 2017 9:53pm Urine pH 5 5 - 7 06/29/2017 9:30pm 06/29/2017 9:53pm Urine Leukocyte Esterase NEGATIVE NEGATIVE 06/29/2017 9:30pm 2017 9:53pm Urine Nitrite NEGATIVE NEGATIVE 06/29/2017 9:30pm 06/29/2017 9:53pm Urine Protein TRACE H NEGATIVE 06/29/2017 9:30pm 06/29/2017 9:53pm Urine Glucose (UA) NEGATIVE NEGATIVE 06/29/2017 9:30pm 06/29/2017 9: 53pm Urine Ketones NEGATIVE NEGATIVE 06/29/2017 9:30pm 06/29/2017 9:53pm Urine Urobilinogen 1 mg/dL 0.2 - 1 06/29/2017 9:30pm 06/29/2017 9:53pm Urine Bilirubin NEGATIVE NEGATIVE 06/29/2017 9:30pm 06/29/2017 9: 53pm Urine Blood 4+ H NEGATIVE 06/29/2017 9:30pm 06/29/2017 9:53pm Urine WBC NONE /HPF 0-5 06/29/2017 9:30pm 06/29/2017 10:03pm Urine RBC 6-10 /HPF H 0-5 06/29/2017 9:30pm 06/29/2017 10:03pm Urine Bacteria MODERATE /HPF H NONE 06/29/2017 9:30pm 06/29/2017 10: 03pm Urine Epithelial Cells MANY /LPF NONE 06/29/2017 9:30pm 06/29/2017 10: 03pm Sodium Level 138 mmol/L 136-145 07/07/2017 8:30am 07/07/2017 9:03am Potassium Level 4.0 mmol/L 3.5-5.1 07/07/2017 8:30am 07/07/2017 9:03am Chloride Level 102 mmol/L 98-107 07/07/2017 8:30am 07/07/2017 9:03am Carbon Dioxide Level 29 mmol/L 22-29 07/07/2017 8:30am 07/07/2017 9: 03am Anion Gap 11.0 mmol/L 8-16 07/07/2017 8:30am 07/07/2017 9:03am Blood Urea Nitrogen 9 mg/dL 7-26 07/07/2017 8:30am 07/07/2017 9:03am Creatinine 0.62 mg/dL 0.57-1.11 07/07/2017 8:30am 07/07/2017 9:03am BUN/Creatinine Ratio 15 6-25 07/07/2017 8:30am 07/07/2017 9:03am Estimat Glomerular Filtration Rate > 60 ML/MIN 60- 07/07/2017 8:30am 9:03am Ranges were taken from the National Kidney Disease Education Program and the National Kidney Foundation literature. Reference ranges: 60 or greater: Normal 16-59 (for 3 consecutive months): Chronic kidney disease 15 or less: Kidney failure Glucose Level 112 mg/dL 74-118 07/07/2017 8:30am 07/07/2017 9:03am Calcium Level 8.9 mg/dL 8.4-10.2 07/07/2017 8:30am 07/07/2017 9:03am Lactic Acid Level 17.4 MG/DL 4.5-19.8 06/30/2017 1:30am 06/30/2017 2: 11am Total Bilirubin 0.4 mg/dL 0.2-1.2 07/03/2017 6:55am 07/03/2017 8:37am Aspartate Amino Transf (AST/SGOT) 16 IU/L 5-34 07/03/2017 6:55am 2017 8:37am Alanine Aminotransferase (ALT/SGPT) 18 IU/L 0-55 07/03/2017 6:55am 10/2017 8:37am Total Protein 6.2 g/dL L 6.5-8.1 07/03/2017 6:55am 07/03/2017 8:37am Albumin 2.2 g/dL L 3.5-5.0 07/03/2017 6:55am 07/03/2017 8:37am Globulin 4.0 g/dL H 2.3-3.5 07/03/2017 6:55am 07/03/2017 8:37am Albumin/Globulin Ratio 0.6 L 0.8-2.0 07/03/2017 6:55am 07/03/2017 8: 37am Alkaline Phosphatase 70 IU/L 40-150 07/03/2017 6:55am 07/03/2017 8: 37am Triglycerides Level 100 MG/DL 0-149 07/01/2017 5:30am 07/01/2017 6: 18am Cholesterol Level 118 MD/DL 0-199 07/01/2017 5:30am 07/01/2017 6:18am Less than 200 mg/dL Low Risk 201 - 239 mg/dL Borderline Risk 240 mg/dl and greater High Risk LDL Cholesterol 68 MG/DL 60-130 07/01/2017 5:30am 07/01/2017 6:18am HDL Cholesterol 30 MG/DL L 40-60 07/01/2017 5:30am 07/01/2017 6:18am Cholesterol/HDL Ratio 3.9 H 3.0-3.6 07/01/2017 5:30am 07/01/2017 6: 18am Creatine Kinase 116 IU/L 29-168 06/30/2017 5:28pm 06/30/2017 6:17pm Creatine Kinase MB 2.10 ng/mL 0-5.0 06/30/2017 5:28pm 06/30/2017 6: 21pm Troponin I 0.002 ng/mL 0-0.300 06/30/2017 5:28pm 06/30/2017 6:21pm Vancomycin Level Trough 10.3 ug/mL *H 5.0-10.0 07/06/2017 8:00pm 2017 8:47pm Results called to HANY BENJAMIN at 2046 on 07/06/17 by [place]. RB OK. Microbiology Results Procedure Source Organism/Result Collection Date/Time Result Date/Time Result Status Blood Culture Blood Growth detected. Culture workup ordered. 06/29/2017 9: 30pm 07/01/2017 8:24pm Final Blood Culture Blood GRAM POSITIVE RON 06/29/2017 9:30pm 07/03/2017 9:12am Final Wound Culture Leg, Left PROTEUS MIRABILIS 06/30/2017 5:30pm 07/03/2017 10: 13am Final Procedures Procedure Status Date Provider(s) X-ray of chest, single view Active 06/29/17 DESHAUN LACEY DAY GUARD Encounters Encounter Location Arrival/Admit Date Discharge/Depart Date Attending Provider Discharged Inpatient [facility] 06/30/17 1:25am 07/07/17 6:15pm MAYTE SANTIAGO MD Departed Emergency Room [facility] 09/14/16 1:56pm 8:22pm CAROL COLEMAN MD
== END 2017-08-05 03:00 | disposition home or self-care (01) ==
LOC: ER 01:12
DX: C76.52 Malignant neoplasm of left lower limb (principal); S81.002A Unspecified open wound, left knee, initial encounter; I89.0 Lymphedema, not elsewhere classified
CPT/HCPCS: 99284

== ENCOUNTER 2018-10-25 02:18 | Observation (INO) | payer OTHER ==
[~2018-10-25] VITALS: Ht 167.6 cm; Wt 133.4 kg
[2018-10-25] VITALS (8 sets, daily range): BP systolic 89–101; BP diastolic 54–68
[2018-10-25] MEDS ORDERED: SODIUM CHLORIDE 0.9% 1000ML 1,000 ML IV STA (02:28)
[2018-10-25] MEDS ORDERED: PROMETHAZINE 12.5MG/ NACL 0.9% 12.5 MG/50 ML BAG IV ONE (02:30)
[2018-10-25] MEDS ORDERED: KETOROLAC TROMETHAMINE 30 MG/ML VIAL IV ONE (02:30)
[2018-10-25] MEDS ORDERED: PROMETHAZINE 25MG/ NS 50ML (IV) IV ONE (02:30)
[2018-10-25 02:56] LABS: BASOPHILS % 0.4 % (0.0-1.0); EOSINOPHILS # (AUTO) 0.2 (0.0-0.4); EOSINOPHILS % 2.1 % (0.0-6.0); LYMPHOCYTES # (AUTO) 1.8 (1.0-3.2); LYMPHOCYTES % 17.1 % (18.0-39.1); MEAN CORPUSCULAR HEMOGLOBIN 26.5 pg (28-32); MEAN CORPUSCULAR VOLUME 91.2 fL (81-99); MONOCYTES # (AUTO) 0.8 (0.2-0.8); MONOCYTES % 7.3 % (4.4-11.3); NEUTROPHILS # (AUTO) 7.8 (2.1-6.9); NEUTROPHILS % 72.4 % (38.7-80.0); PLATELET COUNT 405 x10e3/uL (140-360); RED BLOOD COUNT 2.04 x10e6/uL (3.6-5.1); RED CELL DISTRIBUTION WIDTH 17.6 % (11.7-14.4)
[2018-10-25 02:59] LABS: HEMATOCRIT 18.6 % (34.2-44.1); HEMOGLOBIN 5.4 g/dL (12.0-16.0)
[2018-10-25 03:14] LABS: ALBUMIN/GLOBULIN RATIO 0.4 (0.8-2.0); ANION GAP 16.6 mmol/L (8-16); CALCIUM 8.6 mg/dL (8.4-10.2); CREATININE, SERUM 2.03 mg/dL (0.57-1.11); POTASSIUM 4.6 mmol/L (3.5-5.1)
[2018-10-25] MEDS ORDERED: PROMETHAZINE 25MG/ NS 50ML (IV) IV PRN (03:15)
[2018-10-25] MEDS ORDERED: DIPHENHYDRAMINE HCL INJ 50 MG/ML VIAL IV PRN (03:15)
[2018-10-25] MEDS ORDERED: ACETAMINOPHEN 325 MG TAB PO PRN (03:15)
[2018-10-25] MEDS ORDERED: DIPHENHYDRAMINE HCL INJ 50 MG/ML VIAL IV ONE (03:15)
[2018-10-25] MEDS ORDERED: ZOLPIDEM TARTRATE 5 MG TAB PO PRN (03:15)
[2018-10-25] MEDS ORDERED: MORPHINE SULFATE INJ 4 MG/ML INJ 1ML IV PRN (03:15)
[2018-10-25] MEDS ORDERED: SODIUM CHLORIDE 0.9% 250ML 250 ML ONE ×2 (06:01→10:56)
--- NOTE | 2018-10-25 07:40 | NUR ---
PATIENT IS AWAKE AND IN STABLE CONDITION WITH NO S/S OF RESPIRATORY DISTRESS. NO PAIN VOICED. DRESSING TO LEGT LEG IS INTACT. GAUZE APPLIED TO LEFT GROIN AREA. ROUND, FIRM NODULES NOTED TO PATIENT UPPER AND LOWER BODY- NO DRAINAGE NOTED. LOWER EXTREMITIES ARE EDEMATOUS. AIR PUMP AND HEEL PROTECTORS APPLIED. BED ALARM ON. MOTHER PRESENT IN ROOM. CALL LIGHT IS WITHIN REACH, PATIENT INSTRUCTED TO CALL FOR ASSISTANCE NEEDED.
[2018-10-25] MEDS: FAMOTIDINE 20 MG TAB PO SCH ×2 (08:49→15:30)
[2018-10-25] MEDS ORDERED: ACETAMINOPHEN 325 MG TAB PO ONE (11:30)
--- NOTE | 2018-10-25 11:43 | NUR ---
SECOND UNIT OF BLOOD IS TRANFUSING; START TIME 1140. PATIENT IN STABLE CONDITION WITH NO S/S OF RESPIRATORY DISTRESS. FAMILY MEMBERS PRESENT IN ROOM.
--- NOTE | 2018-10-25 13:55 | NUR ---
WOUND CARE NURSE INITIAL CONSULTATION. 43 YEAR OLD FEMALE ADMITTED TO [facility] WITH DX OF ANEMIA, SARCOMA OF THE BONE AND WEAKNESS. HEAD TO TOE SKIN ASSESSMENT PERFORMED TODAY. PT PRESENTS WITH A [id number] CM WOUND TO LEFT POSTERIOR KNEE, 80% SLOUGH AND 20% PINK GRANULAR TISSUE. CHRONIC 4+ BRAWNY PITTING EDEMA TO LEFT LOWER EXTREMITY. I ASSESSED THIS PT FOR THE FIRST TIME IN 06/30/2017. IN COMPARISON FROM LAST YEAR WOUND HAS IMPROVED SIGNIFICANTLY. NO MALODOR IS I PRESENT. NO TENDON OR BONE ARE EXPOSED AT THIS TIME. PT WAS ON HOSPICE, HOWEVER THIS WAS REVOKED WHEN PT CAME IN TO HOSPITAL. BROTHER AT BEDSIDE STATES SHE GETS DRESSING CHANGES AT HOME WITH COMPOUND 3 MEDICATION, WHICH IS AT BEDSIDE FOR DRESSING CHANGES. LARGE AMOUNT OF SEROUS DRAINAGE IS PRESENT TO LEFT GROIN, NO OPEN AREAS ARE NOTED. PT REQUIRES MAXIMUM ASSISTANCE TO REPOSITION.THERE ARE NO OTHER AREAS OF CONCERN AT THIS TIME. LABS: WBC: 10.75 ALB: 2.0 RECOMMENDATIONS: REPOSITION PT EVERY TWO HOURS AND PRN. CONTINUE BILATERAL HEEL PROTECTORS AND PILLOW SUSPENSIONS. CONTINUE WITH ROTATING LOW AIR LOSS MATTRESS AND BARIATRIC BED. CONTINUE WITH CURRENT WOUND [facility] ORDERS. ( CLEAN WOUND WITH DAKIN SOLUTIONS, PAT DRY AND APPLY COMPOUND #3 TO WOUND BED AND COVER WITH ABD PADS AND KERLIX. CHANGE DRESSING DAILY. APPLY DRY DRESSINGS TO LEFT GROIN. THANKS FOR THIS CONSULTATION. Addendum: 10/25/18 at 1410 by Maren Rosenberg RN Amended: Links added.
[2018-10-25] MEDS: LACTATED RINGER'S 1,000 ML IV SCH (15:23)
[2018-10-25 17:04] LABS: HEMATOCRIT 20.5 % (34.2-44.1); HEMOGLOBIN 6.2 g/dL (12.0-16.0)
--- NOTE | 2018-10-25 17:51 | NUR ---
CALL PLACED OUT TO DR. SANTIAGO REGARDING H/H RESULTS OF HGB 6.2 AND HCT 20.5- AWAITING CALLBACK. DRESSING CHANGED TO PATIENT LEFT GROIN AREA- 4x4 GAUZE AND ABD PADS x3 APPLIED; DRESSING IS DRY AND INTACT. PATIENT TURNED TO HER RIGHT SIDE. DRESSING TO LOWER LEFT FOOT IS DRY AND INTACT. FAMILY MEMBERS PRESENT IN ROOM.
--- NOTE | 2018-10-25 19:11 | NUR ---
PATIENT IS TURNED TO HER RIGHT SIDE- AWAKE AND IN STABLE CONDITION WITH NO S/S OF RESPIRATORY DISTRESS. PATIENT DENIES PAIN. IV FLUIDS INFUSING. PATIENT RECENTLY CHANGED- DIAPER APPLIED. DRESSING TO LEFT GROIN SITE IS DRY AND INTACT WELL TO THE LEFT LOWER LEG. FAMILY MEMBERS PRESENT IN ROOM. CALL LIGHT IS WITHIN REACH, PATIENT INSTRUCTED TO CALL FOR ASSISTANCE NEEDED. BEDSIDE REPORT GIVEN TO ONCOMING NURSE.
[2018-10-26] VITALS (8 sets, daily range): BP systolic 95–107; BP diastolic 55–71
[2018-10-26] MEDS: LACTATED RINGER'S 1,000 ML IV SCH ×2 (04:41→18:59)
--- NOTE | 2018-10-26 04:41 | NUR ---
Patient's mother at bedside refusing 2nd bag of fluids due to patient's extreme edema to left lower extremity. There are 2 bags scheduled and the first just finished. I told her we could hold 2nd bag until MD arrives on unit. Patient is bedbound hospice, at home, and mother is primary adult care provider. Purewick was placed for comfort measures.
--- NOTE | 2018-10-26 05:14 | NUR ---
Patient requested to stay in flat position and not be turned at 0200. States she's comfortable in this position. At 0400 patient agreed to resume turning schedule and was turned to the right.
--- NOTE | 2018-10-26 07:00 | NUR ---
ROUNDED WITH POLLUTION CONTROL ENGINEER NURSE, PATIENT RESTING COMFORTABLY WITH MOTHER AT BEDSIDE. PATIENT IN NO DISTRESS, CALL DICKERSON WITHIN REACH AND BED IN LOWEST POSITION.
[2018-10-26] MEDS: FAMOTIDINE 20 MG TAB PO SCH ×2 (08:45→16:42)
[2018-10-26] MEDS ORDERED: SODIUM CHLORIDE 0.9% 250ML 250 ML IV ONE (10:00)
[2018-10-26] MEDS ORDERED: SODIUM CHLORIDE 0.9% 250ML 250 ML ONE (14:24)
--- NOTE | 2018-10-26 18:55 | NUR ---
rounded with security shift manager nurse, patient aware of change and in no distress with mother at bedside. call marcos within reach and bed in lowest position.
[2018-10-26] MEDS ORDERED: SODIUM CHLORIDE 0.9% 250ML 500 ML ONE (19:27)
[2018-10-27 00:11] VITALS: BP 102/67
[2018-10-27 05:37] VITALS: BP 103/68
--- NOTE | 2018-10-27 05:39 | NUR ---
Patient and mother do not want us to turn patient stating its very painful. States she isn't turned at home and her skin is good. Patient is bedbound with mother as caregiver.
--- NOTE | 2018-10-27 06:55 | NUR ---
rounded with second shift supervisor nurse, patient aware of change and in no distress with mother at bedside. call marcos within reach and bed in lowest position.
[2018-10-27 07:40] VITALS: BP_SYST 101; BP_SYST 136; BP_DIAS 63
[2018-10-27 07:50] VITALS: BP 101/63
[2018-10-27] MEDS: FAMOTIDINE 20 MG TAB PO SCH (07:50)
[2018-10-27 08:16] LABS: BASOPHILS % 0.3 % (0.0-1.0); EOSINOPHILS # (AUTO) 0.1 (0.0-0.4); EOSINOPHILS % 0.6 % (0.0-6.0); LYMPHOCYTES # (AUTO) 1.6 (1.0-3.2); LYMPHOCYTES % 10.4 % (18.0-39.1); MEAN CORPUSCULAR HGB CONC 32.1 g/dL (31-35); MONOCYTES # (AUTO) 0.9 (0.2-0.8); MONOCYTES % 5.7 % (4.4-11.3); NEUTROPHILS # (AUTO) 12.3 (2.1-6.9); NEUTROPHILS % 82.3 % (38.7-80.0); PLATELET COUNT 257 x10e3/uL (140-360); RED BLOOD COUNT 3.22 x10e6/uL (3.6-5.1); RED CELL DISTRIBUTION WIDTH 16.9 % (11.7-14.4)
[2018-10-27] MEDS: LACTATED RINGER'S 1,000 ML IV SCH (08:32)
[2018-10-27 11:56] VITALS: BP 121/56
[2018-10-27] MEDS ORDERED: TRAMADOL HCL 50 MG TAB PO ONE (12:10)
--- NOTE | 2018-10-27 13:10 | NUR ---
patient alert and oriented with mother at bedside. patient discharge instructions given, both verbalized understanding. Port no longer is accessed. patient leaving via stretcher for ambulance to take her home.
--- NOTE | 2018-12-05 15:59 | Discharge Summary ---
CHIEF COMPLAINT: Fatigue and weakness. FINAL DIAGNOSES: 1. Osteosarcoma. 2. Anemia. DISPOSITION: Returning back to Hospice. HOSPITAL COURSE: A 43-year-old female with known history of osteosarcoma, left leg with lesions suprapubic back of neck, history of anemia of chronic disease, brought to the ER with 3-day history of increasing fatigue and weakness. No chest pain. No shortness of breath. Underwent review and evaluation in the emergency room. The patient was noted to be pale appearing, reveals a large tumor back of neck. Abdomen is obese. Numerous tumors of different size in suprapubic area. Massive lymphedema of lower extremities. Dark discoloration, large room lateral aspect left mid thigh. Blood work in the emergency room showing hemoglobin of 5.3. She requiring transfusion. She is admitted for evaluation of osteosarcoma, profound anemia, massive lymphedema of lower extremity. Home medications will continue. We will begin wound Care. We will set the patient up for type and crossmatch of packed RBCs. The patient on the Med-Surg floor, receiving a regular diet, waiting for her blood to be returned to undergo transfusion. She was given medications for pain. Continuing along with her daily medications. Continue to be treated accordingly. She was receiving transfusions. She will be cleared for discharge at the completion of her transfusions. H and H did respond well post transfusion and the patient was cleared for discharge back to hospice service on 10/27/2018 in guarded condition. LABORATORY STUDIES: Shows initial CBC, white cell count of 10,700, H and H is 5.4 and 18.6. Followup H and H was 6.2 and 20.5. Completion of her transfusion, H and H was 9.0 and 28.0. The white cell count had risen to 14,900. Chemistries, electrolytes shows sodium 128. Kidney function, BUN 31 and creatinine 2.03. The patient was stabilized post transfusion and as mentioned was cleared for discharge. She will be discharged home with continuation of hospice. She will continue to be a bed-bound individual. Mother will remain her caregiver along with hospice. Hospice will continue to liaison with her primary care physician. Medications being addressed through hospice. Dictated by JALYN Holland Jamal Vázquez MD CC/MODL /[id number]
== END 2018-10-27 13:36 | disposition home or self-care (01) ==
LOC: ER 02:18 → ERHOLD 03:51 → MED/SURG3 04:10
DX: C40.22 Malignant neoplasm of long bones of left lower limb (principal); D63.8 Anemia in other chronic diseases classified elsewhere; R10.84 Generalized abdominal pain; N17.9 Acute kidney failure, unspecified
CPT/HCPCS: 36415 ×2; 36430; 80053; 85014; 85018; 85025 ×2; 86850; 86900; 86920; 99284; G0378 ×3; J1200; J2270; J7050 ×2; J7121; P9016 ×3